=== PATIENT | female | born 1990 | race Caucasian/White ===

== ENCOUNTER 2025-04-09 20:10 | Emergency (ER) | payer OTHER, SELFPAY ==
[2025-04-09 20:17] VITALS: BP 130/94; PULSE 108; O2SAT 98; BMI 39.8
--- NOTE | 2025-04-09 20:47 | ED.EXTPRO1 ---
HPI - Extremity Problem General Chief complaint: Extremity Problem, Nontraumatic Stated complaint: RIGHT UPPER EXTREMITY PROBLEM Time Seen by Provider: 04/09/25 20:23 Source: patient Mode of arrival: walk-in Limitations: no limitations History of Present Illness HPI Narrative: cc - right shoulder pain Pt woke with pain in right shoulder that was worse with right shoulder movement. As time progressed, the pain has worsened. No injury, no trauma to the area, no prior history of neck abnormalities or shoulder abnormalities. No recent change in activity to account for the pain. She is right handed. No other symptoms. Pain is localized to the posterolateral aspect of the right shoulder joint and along the lateral aspect of the right upper arm. She was evaluated at urgent and by her PCP and diagnosed with joint pain . She was referred to Ortho but does not see them until mid next week. No relief with Tylenol for pain. She is about 6 weeks . Related Data Home Medications ?Medication ?Instructions ?Recorded ?Confirmed bupropion HCl 150 mg 24 hr tablet, 150 mg PO DAILY 04/09/25 04/09/25 extended release hydroxyzine HCl 50 mg tablet 50 mg PO Q8H 04/09/25 04/09/25 Previous Rx's ?Medication ?Instructions ?Recorded hydrocodone 5 mg-acetaminophen 325 1 tab PO Q6H PRN pain #14 tabs 04/09/25 mg tablet Allergies Allergy/AdvReac Type Severity Reaction Status Date / Time No Known Drug Allergies Allergy Verified 04/09/25 20:23 PFSH PFSH Social History Little interest or pleasure in doing things: not at all Feeling down, depressed, or hopeless: not at all Exam Narrative Exam Narrative: Nurses notes and vital signs reviewed and patient is not hypoxic. afebrile General: Well-appearing and in no apparent distress. Skin: Warm, dry, no pallor noted. No rash. Head: Normocephalic, atraumatic. Neck: Supple, non-tender. Cardiovascular: Regular Rate and Rhythm without murmur, gallop or rub. Respiratory: No accessory muscle use or respiratory distress. Lungs are clear to auscultation, no wheezing, rales or rhonchi Back: No midline thoracic, right scapular or right trapezius tenderness. Musculoskeletal: Soft tissue tenderness throughout the right shoulder joint. There is no tenderness on palpation of the right bicep and right upper arm, including medially. She has unable to flex greater than about 30 degrees with the right upper extremity at the shoulder. She is unable to abduct greater than 10 degrees in the right shoulder. Remainder of the right upper extremity, from the elbow distally, with normal ROM, no elbow or forearm tenderness, no right upper extremity edema/swelling GI: Abdomen is soft, non-distended. Normal bowel sounds. No masses appreciated. No tenderness to palpation. No rebound, guarding, or rigidity noted. Neurological: A&O x4. No cranial nerve dysfunction observed. No truncal ataxia. Moves all extremities. Sensation intact. Psychiatric: Cooperative and interactive. Normal mood and affect. Constitutional Vital Signs, click to edit/add: Last Vital Signs Pulse 108 H 04/09/25 20:17 Resp 16 04/09/25 20:17 BP 130/94 H 04/09/25 20:17 Pulse Ox 98 04/09/25 20:17 O2 Del Method Room Air 04/09/25 20:17 Course Vital Signs Vital signs: Vital Signs Pulse Rate 108 H 04/09/25 20:17 Respiratory Rate 16 04/09/25 20:17 Blood Pressure 130/94 H 04/09/25 20:17 Pulse Oximetry 98 04/09/25 20:17 Oxygen Delivery Method Room Air 04/09/25 20:17 Pulse Rate 108 H 04/09/25 20:17 Respiratory Rate 16 04/09/25 20:17 Blood Pressure 130/94 H 04/09/25 20:17 Pulse Oximetry 98 04/09/25 20:17 Oxygen Delivery Method Room Air 04/09/25 20:17 MDM - Extremity (Nontraumatic) MDM Narrative Medical decision making narrative: Patient is about 6 weeks . No relief with Tylenol. No trauma or injury to necessitate x-ray or other imaging at this time. Risks associated with narcotic medication administration in light of her being about 6 weeks were discussed and she is willing to proceed with receipt of pain medication. She was ordered to receive 1 mg of Dilaudid IM while in the emergency department. We also discussed a sling on the right upper extremity to help with support. She has already been trying to do movement exercises of the right shoulder but we did discuss this further. She was discharged home with a prescription for [place] to take over the weekend. Discharge Plan Discharge Chief Complaint: Extremity Problem, Nontraumatic Clinical Impression: Impingement of right shoulder, Acute pain of right shoulder Patient Disposition: Home, Self-Care Time of Disposition Decision: 20:55 Prescriptions / Home Meds: New hydrocodone-acetaminophen 5-325 mg tablet 1 tab PO Q6H PRN (Reason: pain) Qty: 14 0RF No Action bupropion HCl 150 mg tablet extended release 24 hr 150 mg PO DAILY hydroxyzine HCl 50 mg tablet 50 mg PO Q8H Print Language: Moldovan Instructions: Shoulder Pain (ED), Shoulder Impingement Syndrome (ED) Referrals: Sherron Sheppard NP [Primary Care Provider] - 1 week
[2025-04-09] MEDS: HYDROMORPHONE HCL 1 MG/ML CARTRIDGE IM (20:54)
== END 2025-04-09 21:18 | disposition home or self-care (01) ==
PROVIDERS: Emergency Provider Emergency Medicine; PCP Nurse Practitioner Family
DX: O99.891 Other specified diseases and conditions complicating pregnancy (principal); M75.41 Impingement syndrome of right shoulder; M25.511 Pain in right shoulder; Z3A.01 Less than 8 weeks gestation of pregnancy
CPT/HCPCS: 96372; 99284; J1171